=== PATIENT | female | born 1970 | race Caucasian/White ===

== ENCOUNTER 2018-12-28 12:08 | Emergency (ER) | payer MEDICAID, OTHER ==
[2018-12-28] MEDS ORDERED: NS 0.9% 1000 ML** 1,000 ML IV ONE (12:45)
[2018-12-28] MEDS ORDERED: Ketorolac INJ* 30 MG/ML 1 ML VIAL IV PUSH ONE (12:45)
[2018-12-28 13:02] LABS: ABS Basophils 0.1 10^3/ul (0-0.2); ABS Eosinophils 0.1 10^3/ul (0-0.6); ABS Lymphocytes 1.7 10^3/ul (1.0-4.8); ABS Monocytes 0.4 10^3/ul (0-0.8); ABS Neutrophils 3.4 10^3/ul (1.5-7.7); Hematocrit 40 % (35-47); Hemoglobin 13.6 g/dL (12.0-16.0); Lymphocyte % 29.9 %; Mean Corpuscular HGB Conc 34 g/dL (31-36); Mean Corpuscular Hemoglobin 33 pg (27-31); Mean Corpuscular Volume 97 fL (80-97); Mean Platelet Volume 9.4 fL (7.4-10.4); Platelet Count 196 10^3/uL (150-450); Red Blood Count 4.17 10^6 /uL (3.70-4.87); Red Cell Distribution Width 13 % (10.5-15); White Blood Count 5.7 10^3/uL (3.5-10.8)
[2018-12-28 13:21] LABS: ALT 19 U/L (7-52); AST 20 U/L (13-39); Albumin 3.8 g/dL (3.2-5.2); Albumin/Globulin Ratio 1.7 (1-3); Alkaline Phosphatase 59 U/L (34-104); Anion Gap 2 mmol/L (2-11); BUN/Creatinine Ratio 19.2 (8-20); Blood Urea Nitrogen 14 mg/dL (6-24); C Reactive Protein < 1.00 mg/L (<8.01); CO2 Carbon Dioxide 28 mmol/L (22-32); Calcium 8.9 mg/dL (8.6-10.3); Chloride 107 mmol/L (101-111); EGFR African American 103.9 (>60); EGFR Non-African American 85.8 (>60); Globulin 2.2 g/dL (2-4); Glucose 90 mg/dL (70-100); Potassium 4.9 mmol/L (3.5-5.0); Sodium 137 mmol/L (135-145)
[2018-12-28 13:27] LABS: HCG Pregnancy 0.64 mIU/mL
[2018-12-28 14:24] LABS: Erythrocyte Sed Rate 3 mm/Hr (0-19)
[2018-12-28] MEDS ORDERED: Phenytoin IV(*) 1,000 MG in NS 0.9% 250 ML* 180 ML IV ONE (15:19)
[2018-12-28] MEDS ORDERED: NS 0.9% 250 ML* 250 ML ONE (15:44)
[2018-12-28] MEDS ORDERED: FOSPHENYTOIN IVPB ONE (16:00)
[2018-12-28] MEDS ORDERED: [UNRECOGNIZED DRUG - OTHER] IVPB ONE (16:00)
[2018-12-28] MEDS ORDERED: NS IVPB ONE (16:00)
[2018-12-28 17:07] VITALS: BP 112/67
--- NOTE | 2019-01-06 06:03 | ED ---
Headache - HPI Summary HPI Summary: Patient is a 48-year-old female with a history of migraines presenting to the ED with "severe frequent headaches." Pain is a stabbing, intermittently occurring every 3-4 minutes and lasting approximately 45 seconds. She states she has had this before. Sxs began 2 days ago. History of migraines include diffuse pressure and usually improved with Excedrin Migraine. She states she has taken Excedrin Migraine without relief of the symptoms. She denies any tearing or rhinorrhea. She denies any photophobia, phonophobia, nausea or vomiting. She states this is different than her typical migraines. Patient is just directly above the right eye, over the eyebrow and behind the eye. She denies any pain to the right side of the face or jaw otherwise. No history of rashes, tick bites, facial droop. Denies medication changes. - History Of Current Complaint Chief Complaint: EDHeadache Stated Complaint: HEADACHES PER PT Time Seen by Provider: 12/28/18 12:24 Hx Obtained From: Patient Hx Last Menstrual Period: 12/06/13 Onset/Duration: Sudden Onset, Started days ago Initially Headache Was: "Worst Headache Ever" - briefly Timing: Intermittent, Lasting: - 45 sec Character: Sharp Location of Headache: Other: - orbital Aggravating Factor: Nothing Allevating Factors: Nothing Associated Signs And Symptoms: Negative - Risk Factors SAH Risk Factors: Negative Meningitis Risk Factors: Negative SDH Risk Factors: Negative Temporal Arteritis Risk Factors: Female, - Allergies/Home Medications Allergies/Adverse Reactions: Allergies Allergy/AdvReac Type Severity Reaction Status Date / Time bacitracin Allergy Rash Verified 01/03/19 14:56 [From Neosporin ([id number])] charlene Allergy Rash Verified 01/03/19 14:56 neomycin Allergy Rash Verified 01/03/19 14:56 [From Neosporin ([id number])] polymyxin B Allergy Rash Verified 01/03/19 14:56 [From Neosporin ([id number])] Poison Cinthya Allergy Intermediate Rash And Uncoded 01/03/19 14:56 Itching Home Medications: Home Medications Aspirin/Acetaminophen/Caffeine [Excedrin Migraine Caplet] 1 tab PO Q8HR PRN 05/10 [History Confirmed 12/28/18] Calcium Carb/Vit D3/Minerals [Calcium 600+D Plus [place]] 1 tab PO BID 12/28/18 [ History Confirmed 12/28/18] Multivitamins/Minerals TAB* [Theragran/minerals TAB*] 1 tab PO DAILY 12/28/18 [ History Confirmed 12/28/18] PMH/Surg Hx/FS Hx/Imm Hx Previously Healthy: Yes Endocrine/Hematology History: Denies: Hx Diabetes, Hx Thyroid Disease Cardiovascular History: Denies: Hx Hypertension, Hx Peripheral Vascular Disease Respiratory History: Denies: Hx Asthma, Hx Chronic Obstructive Pulmonary Disease (COPD) GI History: Denies: Hx Ulcer Musculoskeletal History: Denies: Hx Arthritis, Hx Rheumatoid Arthritis, Hx Osteoporosis Sensory History: Denies: Hx Cataracts, Hx Contacts or Glasses, Hx Glaucoma Opthamlomology History: Denies: Hx Cataracts, Hx Contacts or Glasses, Hx Glaucoma Neurological History: Denies: Hx Headaches, Hx Seizures, Hx Transient Ischemic Attacks (TIA) Psychiatric History: Denies: Hx Anxiety, Hx Depression - Cancer History Cancer Type, Location and Year: BASAL CELL SKIN CA Hx Chemotherapy: No Hx Radiation Therapy: No - Surgical History Surgery Procedure, Year, and Place: [place] teeth extraction, removal of basal cell skin lesions. - Immunization History Hx Pertussis Vaccination: No Immunizations Up to Date: Yes Infectious Disease History: No Infectious Disease History: Denies: Hx Hepatitis, Hx Human Immunodeficiency Virus (HIV), Traveled Outside the [place] in Last 30 Days - Family History Known Family History: Positive: Cardiac Disease - Social History Occupation: Employed Full-time Lives: With Family Alcohol Use: None Hx Substance Use: No Substance Use Type: Reports: None Hx Tobacco Use: No Smoking Status (MU): Never Smoked Tobacco Review of Systems Constitutional: Negative Negative: Fever, Chills, Fatigue, Skin Diaphoresis Negative: Palpitations, Chest Pain Negative: Shortness Of Breath, Cough Genitourinary: Negative Positive: no symptoms reported, see HPI Negative: Arthralgia, Myalgia Positive: Headache - right orbital and supraorbital DENNY All Other Systems Reviewed And Are Negative: Yes Physical Exam Triage Information Reviewed: Yes Vital Signs On Initial Exam: Initial Vitals Temp Pulse Resp BP Pulse Ox 98.8 F 53 14 135/96 98 12/28/18 12:15 12/28/18 12:15 12/28/18 12:15 12/28/18 12:15 12/28/18 12:15 Vital Signs Reviewed: Yes Appearance: Positive: Well-Appearing, Well-Nourished Skin: Positive: Warm, Skin Color Reflects Adequate Perfusion Head/Face: Positive: Normal Head/Face Inspection Eyes: Positive: EOMI, [place], Conjunctiva Clear, Other: - no conjunctival injection or tearing, no rhinnorhea Neck: Positive: Supple, No Lymphadenopathy Respiratory/Lung Sounds: Positive: Clear to Auscultation, Breath Sounds Present Cardiovascular: Positive: RRR, Pulses are Symmetrical in both Upper and Lower Extremities. Negative: Leg Edema Left, Leg Edema Right Musculoskeletal: Positive: Normal, Strength/ROM Intact Neurological: Positive: Sensory/Motor Intact, Alert, Oriented to Person Place, Time, CN Intact II-III, Normal Gait, Speech Normal Psychiatric: Positive: Normal, Affect/Mood Appropriate AVPU Assessment: Alert - [place] Coma Scale Best Eye Response: 4 - Spontaneous Best Motor Response: 6 - Obeys Commands Best Verbal Response: 5 - Oriented Coma Scale Total: 15 Diagnostics - Vital Signs Vital Signs Temp Pulse Resp BP Pulse Ox 12/28/18 17:50 98.2 F 51 15 112/67 100 12/28/18 17:01 112/67 12/28/18 17:00 52 97 12/28/18 16:00 53 99 12/28/18 15:32 136/92 12/28/18 15:03 58 119/73 100 12/28/18 15:00 56 99 12/28/18 14:32 56 119/81 100 12/28/18 14:03 58 136/87 100 12/28/18 14:00 60 100 12/28/18 13:39 146/87 12/28/18 13:32 46 100 12/28/18 12:15 98.8 F 53 14 135/96 98 - Laboratory Lab Results: Lab Results 12/28/18 12/28/18 Range/Units 12:55 12:55 WBC 5.7 (3.5-10.8) 10^3/uL RBC 4.17 (3.70-4.87) 10^6 /uL Hgb 13.6 (12.0-16.0) g/dL Hct 40 (35-47) % MCV 97 (80-97) fL MCH 33 H (27-31) pg MCHC 34 (31-36) g/dL RDW 13 (10.5-15) % Plt Count 196 (150-450) 10^3/uL MPV 9.4 (7.4-10.4) fL Neut % (Auto) 59.2 % Lymph % (Auto) 29.9 % [place] % (Auto) 7.9 % Eos % (Auto) 2.0 % Baso % (Auto) 1.0 % Absolute Neuts (auto) 3.4 (1.5-7.7) 10^3/ul Absolute Lymphs (auto) 1.7 (1.0-4.8) 10^3/ul Absolute Monos (auto) 0.4 (0-0.8) 10^3/ul Absolute Eos (auto) 0.1 (0-0.6) 10^3/ul Absolute Basos (auto) 0.1 (0-0.2) 10^3/ul Absolute Nucleated RBC 0.0 10^3/ul Nucleated RBC % 0.0 ESR 3 (0-19) mm/Hr Sodium 137 (135-145) mmol/L Potassium 4.9 (3.5-5.0) mmol/L Chloride 107 (101-111) mmol/L Carbon Dioxide 28 (22-32) mmol/L Anion Gap 2 (2-11) mmol/L BUN 14 (6-24) mg/dL Creatinine 0.73 (0.51-0.95) mg/dL Est GFR ( Amer) 103.9 (>60) Est GFR (Non-Af Amer) 85.8 (>60) BUN/Creatinine Ratio 19.2 (8-20) Glucose 90 (70-100) mg/dL Calcium 8.9 (8.6-10.3) mg/dL Total Bilirubin 0.40 (0.2-1.0) mg/dL AST 20 (13-39) U/L ALT 19 (7-52) U/L Alkaline Phosphatase 59 (34-104) U/L C-Reactive Protein < 1.00 (<8.01) mg/L Total Protein 6.0 L (6.4-8.9) g/dL Albumin 3.8 (3.2-5.2) g/dL Globulin 2.2 (2-4) g/dL Albumin/Globulin Ratio 1.7 (1-3) Beta HCG, Quant 0.64 mIU/mL Result Diagrams: 12/28/18 12:55 12/28/18 12:55 Lab Statement: Any lab studies that have been ordered have been reviewed, and results considered in the medical decision making process. Headache Course/Dx - Course Course Of Treatment: Patient is evaluated for intense pain above the R eye and behind the R eye. Sxs not improved with rest or medications. Spontaneously resolves following 45 sec. patient is given Toradol with no relief. She is given fluids. Labs obtained which are WNL. Neuro exam normal. CT brain shows no findings. No rashes or facial droop. No other sxs. Discussed with Dr. Henderosn who recommends phenytoin for trigeminal neuralgia. He will follow up with her in the office. patient states she still has sxs, but they are improving. She is comfortable with DC plan for follow up with Dr. eHnderson for trigeminal neuralgia. Prescription sent. Follow up is scheduled for tomorrow. - Diagnoses Differential Diagnosis/HQI/PQRI: Other - DENNY, migraine Provider Diagnoses: Trigeminal neuralgia - Physician Notifications Discussed Care Of Patient With: Danilo Henderson Instructed by Provider To: Have Pt Call For Appt. - will see tomorrow Discharge - Sign-Out/Discharge Documenting (check all that apply): Patient Departure Patient Received Moderate/Deep Sedation with Procedure: No - Discharge Plan Condition: Stable Disposition: HOME Prescriptions: Phenytoin CAP(*) [Dilantin CAP(*)] 300 mg PO DAILY #5 cap.er Patient Education Materials: Fosphenytoin (By injection), Trigeminal Neuralgia (ED) Referrals: Danilo Henderson MD [Medical Doctor] - Rissa Cespedes MD [Primary Care Provider] - Additional Instructions: Medical Office Building: Left of the main entrance 3rd floor [address] 10:30a appt with Dr. Henderson (appt at 10:45a) - arrive at 10:30a for paperwork Dilantin 300mg daily has been prescribed to you Likely next step is MRI study - Dr. Henderson can discuss this with you tomorrow - Billing Disposition and Condition Condition: STABLE Disposition: Home
== END 2018-12-28 17:50 | disposition home or self-care (01) ==
LOC: ED 12:08
DX: G50.0 Trigeminal neuralgia (principal); Z85.828 Personal history of other malignant neoplasm of skin; Z79.82 Long term (current) use of aspirin
CPT/HCPCS: 36415; 70450; 80053; 84702; 85025; 85652; 86140; 96361; 96374; 99283; J1165; J1885; Q2009